=== PATIENT | female | born 1955 | race Two or more races ===

== ENCOUNTER → 2021-06-18 | Outpatient (CLI) | payer MEDICARE, MEDICAID ==
[~2021-06-18] MED LIST: CEPH500T PO; CHOL10003 PO; DIVA125T31 PO; LOSA25TA25 PO; METF750T42 PO; OXYB5TAB10 PO; OXYC1TAB12 PO; SIMV20TA19 PO
== END | disposition home or self-care (01) ==
LOC: RAD 06:30
PROVIDERS: ATTEND Neurological Surgery
DX: G31.89 Other specified degenerative diseases of nervous system (principal); G91.2 (Idiopathic) normal pressure hydrocephalus
CPT/HCPCS: 70450